=== PATIENT | male | born 1970 | race Caucasian/White ===

== ENCOUNTER 2019-12-13 10:00 | Emergency (ER) | payer OTHER ==
[~2019-12-13] VITALS: Ht 180.3 cm; Wt 83.9 kg
[2019-12-13] MEDS ORDERED: AVAPRO300 MG PO (10:16)
[2019-12-13] MEDS ORDERED: DICY20TA PO (14:20)
[2019-12-13] MEDS ORDERED: CIPRO500 MG PO (14:20)
[2019-12-13] MEDS ORDERED: PROTONIX40 MG PO (14:20)
[2019-12-13] MEDS ORDERED: FLAGYL500MG PO (14:20)
== END 2019-12-13 17:04 | disposition home or self-care (01) ==
LOC: ER 10:00
DX: K57.30 Diverticulosis of large intestine without perforation or abscess without bleeding (principal)